=== PATIENT | female | born 1995 | race Caucasian/White ===

== ENCOUNTER 2016-11-03 03:49 | Emergency (ER) | payer BC, OTHER ==
[2016-11-03 04:04] VITALS: TEMP 36.6
[2016-11-03 04:22] VITALS: O2SAT 99
[2016-11-03 05:05] LABS: BLOOD UREA NITROGEN 10 mg/dl (7-18); CALCIUM 8.6 mg/dl (8.5-10.1); CARBON DIOXIDE 22 mmol/L (21-32); CHLORIDE 109 mmol/L (98-107); CREATININE 0.69 mg/dl (0.60-1.20); GLUCOSE 99 mg/dl (70-99); POTASSIUM 3.3 mmol/L (3.5-5.1); SODIUM 144 mmol/L (136-145)
[2016-11-03] MEDS ORDERED: POTASSIUM CHLORIDE 10 MEQ TABCR PO STA (05:14)
--- NOTE | 2016-11-03 05:14 | EMERGENCY ROOM VISIT NOTE ---
History First contact with patient: 03:54 Chief Complaint: ALCOHOL OVERDOSE Stated Complaint: ALCOHOL Nursing Triage Summary: pt brought to main ED by BLS services. report they found pt walking downtown unsure of where she was. pt walked to [facility] by EMS services. pt reports she graduated last january and drove here "for some fun tonight" reports she is staying with a friend. pt is alert and oriented x4. breathing WNL. pt tearful, states "kd never been in trouble before." History of Present Illness The patient is a 20 year old female who presents to the Emergency Room with complaints of alcohol intoxication via EMS. Patient was found stumbling down town. Patient is here visiting from [place]. She states she had some alcohol tonight. No drugs. She is visiting a friend. Patient denies chest pain, dyspnea, fever, chills, abdominal pain or any other medical complaints. Review of Systems See HPI for pertinent positives & negatives. A total of 10 systems reviewed and were otherwise negative. Past Medical/Surgical History None Social History Smoking Status: Never Smoker Alcohol Use: occasionally Drug Use: none Allergies Coded Allergies: No Known Allergies (Unverified , 11/03/16) Physical Exam Vital Signs Date Time Temp Pulse Resp B/P Pulse Ox O2 Delivery O2 Flow Rate FiO2 11/03/16 04:22 125 18 126/97 99 Room Air 11/03/16 04:22 99 Room Air 11/03/16 04:22 99 Room Air 11/03/16 04:04 36.6 114 22 152/104 98 Room Air Physical Exam PHYSICAL EXAM: VITALS: Vitals are noted on the nurse's note and reviewed by myself. Vital signs stable. GENERAL: Pleasant tearful female with EtOH odor, in no acute distress, nondiaphoretic, well-developed well-nourished. The patient is visibly intoxicated. SKIN: Superficial abrasions to hands without signs of infection The rest of the skin was without obvious lacerations, abrasions, or rashes. There is no tenting of the skin. Capillary reflex less than 2 seconds. HEENT: Normocephalic, atraumatic. PERRLA. EOMI. Conjunctiva with mild injection without icterus. Tympanic membranes without erythema or effusion bilaterally no hemotympanum. External auditory canals are clear. Nares patent bilaterally. No epistaxis. Oropharynx without erythema or exudate. Uvula midline. Oral mucosal moist. No lymphadenopathy. Neck is supple without cervical spine tenderness. HEART: Regular rate and rhythm without murmurs gallops or rubs. Peripheral pulses 2+. LUNGS: Clear to auscultation bilaterally without wheezes, rales or rhonchi. ABDOMEN: Positive bowel sounds x 4. Normal tympanic percussion. Soft, nontender, without masses or organomegaly. MUSCULOSKELETAL: Gross motor function of the upper and lower extremities intact. The patient has a staggering gait. NEUROLOGIC: The patient is visibly intoxicated. Once they were more sober they were alert and oriented to person place and time. Medical Decision & Procedures Laboratory Results 11/03/16 04:34 Test 11/03/16 04:34 Anion Gap 13.0 mmol/L (3-11) Estimated GFR () 143.2 Estimated GFR (Non- 123.6 BUN/Creatinine Ratio 14.0 (10-20) Calcium Level 8.6 mg/dl (8.5-10.1) Ethyl Alcohol mg/dL 217.0 mg/dl (0-3) ED Course Prior records/ancillary studies reviewed. Triage Nursing notes reviewed. Additional history obtained from EMS. The patient's history was concerning for altered mental status and a possible alcohol overdose. Differential diagnosis: Etiologies such as alcohol intoxication, toxicologic, infection, hypoglycemia, electrolyte abnormalities, cardiac sources, intracerebral event, neurologic, as well as others were entertained. Physical examination: As above. The patient is clinically intoxicated. no trauma noted. ER treatment provided: Monitoring Aspiration precautions The patient was frequently reassessed. Diagnostic interpretation by me: Cardiac monitoring did not reveal any evidence of dysrhythmia. The labs revealed hypokalemia and this was replaced orally. The patient's blood alcohol level was 217 mg/dL. The patient's history was reviewed once they were more coherent and their intoxication cleared. The patient states they have been in good health recently and had no medical complaints. The patient admitted to consuming alcohol. No additional concerning findings were noted. The patient complained of no symptoms to suggest assault. This appears to be consistent with an isolated overdose of alcohol. By the evaluation outlined above emergent etiologies such as trauma, infection, hypoglycemia, electrolyte abnormalities, cardiac sources, intracerebral event, neurologic,as well as others were deemed relatively unlikely. The patient was informed about the findings as listed above. The patient was counseled on the dangers of excessive alcohol use. I gave my usual and customary discussion regarding this issue. All questions were answered and the patient was pleased with the treatment. Return instructions were outlined and the patient was discharged in stable condition once their mental status improved and a safe destination was confirmed. Outpatient prescription management: None Referral: The patient was referred back to their primary care physician for follow-up in 2 to 3 days for a recheck of their current condition. Medical Decision As above Impression Primary Impression: Alcohol use with intoxication Additional Impressions: Hand abrasion, non-infected Hypokalemia Departure Information Dispostion Home / Self-Care Condition GOOD Referrals No Doctor, Assigned (PCP) Patient Instructions My [facility] Additional Instructions Antibiotic ointment and bandage to the areas until healed. Follow up with family doctor or return for any signs of infection (increasing redness, swelling , drainage, or fever). Keep covered when in sun until fully healed then SPF 50 or higher until scar healed. Keep well-hydrated. Tylenol every 6 hours as needed for pain (Maximum 3000 mg Tylenol in 24 hr period). Follow up with family doctor and/or health services as needed. No driving for the next 24 hours. Recommend no alcohol for the next 48 hours and avoid binge drinking in the future. Return to ER sooner for chest pain, abdominal pain, worsening signs or symptoms or as needed. Problem Qualifiers
[2016-11-03 07:01] VITALS: BP 110/61; PULSE 82; O2SAT 98
== END 2016-11-03 07:03 | disposition home or self-care (01) ==
LOC: EDBD 03:49 → C.EDB 03:52
DX: F10.129 Alcohol abuse with intoxication, unspecified (principal); S60.511A Abrasion of right hand, initial encounter; S60.512A Abrasion of left hand, initial encounter; X58.XXXA Exposure to other specified factors, initial encounter; E87.6 Hypokalemia